=== PATIENT | female | born 1980 | race African-American/Black ===

== ENCOUNTER 2020-09-24 18:39 | Emergency (ER) | payer MEDICAID, OTHER ==
[~2020-09-24] VITALS: Ht 170.2 cm; Wt 99.8 kg
[2020-09-24] MEDS ORDERED: KETOROLAC TROMETH 60MG/2ML VIAL IM ONE (20:00)
[2020-09-24 20:53] VITALS: BP 138/72
== END 2020-09-24 21:54 | disposition home or self-care (01) ==
LOC: ER 18:40
DX: S13.4XXA Sprain of ligaments of cervical spine, initial encounter (principal); F17.210 Nicotine dependence, cigarettes, uncomplicated; V49.9XXA Car occupant (driver) (passenger) injured in unspecified traffic accident, initial encounter; Y93.89 Activity, other specified; Y92.89 Other specified places as the place of occurrence of the external cause; Y99.8 Other external cause status
CPT/HCPCS: 72040; 96372; 99283; J1885